=== PATIENT | female | born 2000 | race Caucasian/White ===

== ENCOUNTER → 2020-12-15 | Outpatient (CLI) | payer BC | LOC: KOH-I 15:32 | DX: M79.642 Pain in left hand (principal) | CPT/HCPCS: 73130 ==

== ENCOUNTER → 2021-02-11 | Outpatient (CLI) | payer BC | LOC: KOH-I 11:13 | DX: N93.9 Abnormal uterine and vaginal bleeding, unspecified (principal) | CPT/HCPCS: 76856 ==